=== PATIENT | male | born 1990 | race Caucasian/White ===

== ENCOUNTER 2017-08-15 11:11 | Emergency (ER) | payer OTHER ==
[~2017-08-15] VITALS: Ht 175.3 cm; Wt 88.5 kg
[2017-08-15] MEDS ORDERED: ALBUTEROL2.5 MG/0.1 INH (12:02)
[2017-08-15] MEDS ORDERED: CLARITIN10 MG PO (12:02)
[2017-08-15] MEDS ORDERED: KEFLEX500 M1 PO (12:52)
== END 2017-08-15 13:08 | disposition home or self-care (01) ==
LOC: ER 11:11
DX: S61.411A Laceration without foreign body of right hand, initial encounter (principal); W26.8XXA Contact with other sharp object(s), not elsewhere classified, initial encounter; Y93.89 Activity, other specified; Y92.89 Other specified places as the place of occurrence of the external cause; Y99.8 Other external cause status